=== PATIENT | female | born 1940 | race Caucasian/White ===

== ENCOUNTER 2020-03-31 14:31 | Emergency (ER) | payer MEDICARE, OTHER ==
[~2020-03-31] VITALS: Ht 177.8 cm; Wt 84.4 kg
--- OUTSIDE RECORDS SUMMARY | ~2020-03-31 | XMS | Clinical Summary ---
Demographics + + + | Address | [address] | | | [place] [address] | + + + | Home Phone | | + + + | Preferred Language | Unknown | + + + | Marital Status | | + + + | Cheondoism Affiliation | Unknown | + + + | Race | White | + + + | Ethnic Group | Not or | + + + Author + + + | Author | [facility] | | | and [place] | + + + | Organization | [facility] | | | and [place] | + + + | Address | Unknown | + + + | Phone | Unavailable | + + + Support + + +---------+ + | Name | Relationship | Address | Phone | + + +---------+ + | Royal Salas | ECON | Unknown | | + + +---------+ + Care Team Providers + +------+ + | Care [employer] Consultant Name | Role | Phone | + +------+ + | Rajeev Nash MD | PCP | | + +------+ + Allergies Not on File Medications Not on file Active Problems Not on file Family History + + +------+ + | Medical History | Relation | Name | Comments | + + +------+ + | Cancer | Father | | | + + +------+ + | Hypertension | Father | | | + + +------+ + | Hypertension | Mother | | | + + +------+ + | Stroke | Mother | | | + + +------+ + + +------+ + + | Relation | Name | Status | Comments | + +------+ + + | Father | | | lung cancer | | | | (Age | | | | | 82) | | + +------+ + + | Father | | | | + +------+ + + | Mother | | | Alzheimers,HTN,CVA | | | | (Age | | | | | 80) | | + +------+ + + | Mother | | | | + +------+ + + Social History + +-------+ +--------+------+ | Tobacco Use | Types | Packs/Day | Years | Date | | | | | Used | | + +-------+ +--------+------+ | Former Smoker | | 0.5 | | | + +-------+ +--------+------+ + + + | Sex Assigned at | Date Recorded | | | | + + + | Not on file | | + + + Last Filed Vital Signs Not on file Plan of Treatment + + +-------+ + | Health Maintenance | Due Date | Last | Comments | | | | Done | | + + +-------+ + | Vaccine: | | | | | Dtap/Tdap/Td (1 - | 1 | | | | Tdap) | | | | + + +-------+ + | Vaccine: Zoster (1 | | | | | of 2) | 2 | | | + + +-------+ + | Breast Cancer | | | | | Screening | 7 | | | + + +-------+ + | Vaccine: | | | | | Pneumococcal 65+ (1 | 7 | | | | of 1 - PPSV23) | | | | + + +-------+ + | Vaccine: Influenza | | | | | (#1) | 0 | | | + + +-------+ + Results Not on filefrom Last 3 Months"
--- OUTSIDE RECORDS SUMMARY | ~2020-03-31 | XMS | Encounter Summary ---
Demographics + + + | Address | [address] | | | [place] [address] | + + + | Home Phone | | + + + | Preferred Language | Unknown | + + + | Marital Status | | + + + | Christianity Affiliation | Unknown | + + + | Race | White | + + + | Ethnic Group | Not or | + + + Author + + + | Author | [facility] | | | and [place] | + + + | Organization | [facility] | | | and [...] Team Providers + +------+ + | Care Facilities Maintenance Supervisor Name | Role | Phone | + +------+ + | Rajeev Nash MD | PCP | | + +------+ + Encounter Details +--------+ + + + + | Date | Type | Department | Care Team | Description | +--------+ + + + + | 11/01/ | Orders Only | [facility] | Hermelindo Johnson | | | 2014 | | CARDIOLOGY YASMINE | MD [address] | | | | | [facility] [address] | [address] | | | | | [address] | [place] [address] | | | | | [place], [place] | [phone] | | | | | [address] | | | | | | [phone] | | | +--------+ + + + + Social History + +-------+ +--------+------+ | Tobacco Use | Types | Packs/Day | Years | Date | | | | | Used | | + +-------+ +--------+------+ | Never Assessed | | | | | + +-------+ +--------+------+ + + + | Sex Assigned at | Date Recorded | | | | + + + | Not on file | | + + + documented as of this encounter Plan of Treatment Not on filedocumented as of this encounter Procedures + +--------+ + + + | Procedure Name | Priori | Date/Time | Associated Diagnosis | Comments | | | ty | | | | + +--------+ + + + | STRESS ECG | Routin | 11/01/2014 | | Results for this | | | e | 10:08 AM | | procedure are in the | | | | PDT | | results section. | + +--------+ + + + documented in this encounter Results Stress ECG (11/01/2014 10:08 AM PDT) + + | Specimen | + + | | + + + + + | Impressions | Performed At | + + + | 1. Stress ECG negative for ischemia. 2. Occasional PACs and | | | PVCs observed observed. 3. Average exercise tolerance. 6-7 METs | | | achieved. 4. Aguirre Treadmill Score is 5.5 ( low risk). | | | | | + + + + + + | Narrative | Performed At | + + + | [facility] Treadmill Stress Test History: 74 | | | year old female being evaluated for paroxysmal atrial tachycardia | | | Rest Data: HR: 57 bpm BP: 149/88 Patient's predicted maximum HR: | | | 147 bpm Patient's predicted 85% maximum HR: 125 bpm Baseline ECG: | | | Normal sinus rhythm Stress Data: Exercise time: 05:34 METS: 7.20 | | | Peak HR: 130 bpm Peak BP: 203/89 RPP: [id number] Patient stopped due to: | | | shortness of breath Chest pain: none Stress ECG: no ischemic ECG | | | changes. Arrhythmias: Occasional PACs and PVCs observed | | | Procedure: Alden protocol. | | + + + + + | Procedure Note | + + | Steve Moura Conversion - 02/13/2019 [address] [facility] | | Treadmill Stress Test | | | | History: | | 74 year old female being evaluated for paroxysmal atrial tachycardia | | | | Rest Data: | | HR: 57 bpm BP: 149/88 | | Patient's predicted maximum HR: 147 bpm | | Patient's predicted 85% maximum HR: 125 bpm | | Baseline ECG: Normal sinus rhythm | | | | Stress Data: | | Exercise time: 05:34 METS: 7.20 | | Peak HR: 130 bpm Peak BP: 203/89 RPP: [id number] | | Patient stopped due to: shortness of breath | | Chest pain: none | | Stress ECG: no ischemic ECG changes. | | Arrhythmias: Occasional PACs and PVCs observed | | | | Procedure: | | Alden protocol. | | | | IMPRESSION: | | 1. Stress ECG negative for ischemia. | | 2. Occasional PACs and PVCs observed observed. | | 3. Average exercise tolerance. 6-7 METs achieved. | | 4. Aguirre Treadmill Score is 5.5 ( low risk). | | | | | + + documented in this encounter Visit Diagnoses Not on filedocumented in this encounter"
[~2020-03-31 14:31] MED LIST: ASPIRIN EC81 MG PO; CALCIUM 600 +1 EACH PO; KLOR-CON 1010 MEQ PO; LEVOTHYROXINE100 MCG PO; LIOTHYRONINE SO5 MCG PO; LOSARTAN-HCTZ1 EAC1 PO; METOPROLOL SUCC50 MG PO; NORCO 5-325 TA1 EACH PO; VITAMIN D-32000 UNI1 PO; VITAMIN D31000 UNI1 PO
[2020-03-31] MEDS ORDERED: MYRBETRIQ25 MG PO (15:40)
--- NOTE | 2020-04-01 08:59 | EKG ---
[facility] [address] [place] [address] Signed Marked sinus bradycardia Left ventricular hypertrophy with QRS widening Abnormal ECG No previous ECGs available Confirmed by CRISTINE BATEMAN MD ([id number]) on 04/01/2020 8:59:22 AM Electronically Signed By: CRISTINE BATEMAN MD 04/01/20 0859 PATIENT NAME: LIZZ JOY MEGAN Electrocardiogram DATE OF : 42 PHYSICIAN: CRISTINE BATEMAN MD REPORT #: [id number] REPORT IS CONFIDENTIAL AND NOT TO BE RELEASED WITHOUT AUTHORIZATION
== END 2020-03-31 18:24 | disposition home or self-care (01) ==
LOC: ED 14:31
DX: R00.1 Bradycardia, unspecified (principal); I10 Essential (primary) hypertension; Z88.8 Allergy status to other drugs, medicaments and biological substances; Z79.899 Other long term (current) drug therapy
CPT/HCPCS: 71045; 80053; 83735; 84443; 84484; 85025; 93005; 93010; 99284-25

== ENCOUNTER 2020-09-27 06:32 | Inpatient (IN) | payer MEDICARE, OTHER ==
[~2020-09-27] VITALS: Ht 177.8 cm; Wt 76.0 kg
--- NOTE | ~2020-09-27 | DS ---
[facility] [address] [place], [place] [address] Draft ADMISSION DATE: 09/27/2020 DISCHARGE DATE: 09/29/2020 REASON FOR ADMISSION: This 80-year-old white woman had the onset of severe mid abdominal pain approximately 1:00 a.m. on the day of presentation. She was seen in the emergency room where she was evaluated by Dr. Yousif and subsequently, Dr. Pipe Gaines. She was noted to have a white count of only 11.4 with central abdominal pain and tenderness. A CT scan was performed, which showed a large segment of small bowel, it was clearly inflamed, edematous and probably representing internal hernia. Surgical consultation was undertaken and evaluation showed her to have very minimal tenderness, but findings on the CT scan clearly to show a compromised mid small bowel. She is admitted to direct operation for remedy of the problem. PAST MEDICAL HISTORY: Does include prior history of abdominal hysterectomy. PERTINENT PHYSICAL EXAMINATION: GENERAL: This is a pleasant white woman, who looked to be in not too much distress. HEENT: Mucous membranes were moist. Trachea midline. CHEST: Clear. HEART: Regular. ABDOMEN: Showed mild central tenderness. No sign of distention. She had an obese abdomen otherwise. HOSPITAL COURSE: Within 30 minutes of surgical consultation, she was in the operating room and laparotomy performed, which showed a segment of bowel 85 cm in length, which was markedly ischemic related to an omental adhesion causing a closed-loop obstruction. The omental adhesion was relieved and bowel irrigated and managed with warm saline lavage ultimately returning to a state that would be considered viable. Pinching of the bowel throughout showed peristalsis and therefore, the bowel was not , though it looked quite ischemic at initial presentation. She did not require resection. Thereafter, she was maintained with a nasogastric tube overnight and it was subsequently removed and liquids began. She tolerated the liquids well and was advanced to regular diet, which she tolerated well. By the time of discharge, she is ambulating well, tolerating a regular diet, has no abdominal pain. Incision is healing well. She is planned for discharge to maintain a regular diet. PATIENT NAME: LIZZ JOY DISCHARGE SUMMARY DATE OF : 42 REPORT #: [id number] PHYSICIAN: REJI OCHOA MD PCP: IVON RUBI MD REPORT IS CONFIDENTIAL AND NOT TO BE RELEASED WITHOUT AUTHORIZATION [facility] [address] [place], [place] [address] Draft DISCHARGE MEDICATIONS: Will predominantly include: 1. Tylenol Extra Strength 1000 mg p.o. q.6 hours as needed for pain #30. 2. She will continue with potassium chloride 10 mEq p.o. daily. 3. Oxybutynin 15 mg p.o. daily. 4. Valacyclovir 1000 mg tablets 2 tablets p.o. b.i.d. as needed for cold sores. 5. Terbinafine 250 mg tablet p.o. daily. 6. Losartan/hydrochlorothiazide 50/12.5 one p.o. daily. 7. Calcium carbonate, vitamin D3 one tablet p.o. daily. 8. Synthroid 112 mcg p.o. daily. DISCHARGE DIAGNOSES: 1. 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 2. Hypothyroidism. 3. Hypertension. 4. . FOLLOWUP PLAN: She will return to see us in approximately 4 weeks. If she has problems in the meantime, she will let me know. She will maintain a regular diet. MD MADELEINE Alfonso/MODL /[id number] cc: MD Ivon Hunter MD Copies: PATIENT NAME: YUSEF JOYPancho GUZMAN DISCHARGE SUMMARY DATE OF : 42 REPORT #: [id number] PHYSICIAN: REJI OCHOA MD PCP: IVON RUBI MD REPORT IS CONFIDENTIAL AND NOT TO BE RELEASED WITHOUT AUTHORIZATION [address] [place], [place] [address] Draft ~ PATIENT NAME: LIZZ JOY DISCHARGE SUMMARY DATE OF : 42 REPORT #: [id number] PHYSICIAN: REJI OCHOA MD PCP: IVON RUBI MD REPORT IS CONFIDENTIAL AND NOT TO BE RELEASED WITHOUT AUTHORIZATION
--- NOTE | ~2020-09-27 | OR ---
[facility] [address] [place], [place] [address] Draft DATE OF OPERATION: 09/27/2020 SURGEON: Reji Ochoa MD PREOPERATIVE DIAGNOSIS: Small bowel obstruction of midgut, large segment possible internal hernia versus segmental volvulus. POSTOPERATIVE DIAGNOSIS: Small bowel obstruction secondary to omental adhesion with bowel ischemia (internal hernia), ischemic bowel 85 cm in length. PROCEDURE: Exploration of abdomen and lysis of obstructing omental adhesions, lavage of the abdomen, warm saline. ANESTHESIA: General endotracheal; Justo Phelan CRNA. INDICATIONS: This 80-year-old white woman had the onset of severe mid abdominal pain at approximately 1:00 a.m. today. She presented to the emergency room in the morning today where she was evaluated by Dr. Pipe Gaines, which included lab studies showing a white count of only 11.4 with central abdominal pain and tenderness and a CT scan performed showing a large segment of small bowel that was clearly inflamed, edematous with edematous mesentery consistent with internal hernia. The patient's past medical history does include abdominal hysterectomy through a Pfannenstiel incision. Clinical examination shows the patient to be not particularly severely tender at this time. Given the appearance of the CT scan and so forth, I have recommended emergency laparotomy with remedy of the problem; a scheduled case I have is put on hold for this emergency indeed. She understands the risks of bleeding, infection, need for possible bowel resection and so forth and wished to proceed. FINDINGS: There was limited midline incision. Laparotomy was performed, which showed a markedly ischemic bowel essentially an internal hernia related to omental adhesion entrapping proximal and distal ends of a loop of mid jejunum. The ischemic segment was 85 cm in length in total. Relief of the omental adhesion allowed for voodoo of blood flow to the segment. Observation with warm irrigation of the abdominal cavity including the PATIENT NAME: LIZZ JOY OPERATIVE REPORT DATE OF : 42 REPORT #: [id number] PHYSICIAN: REJI OCHOA MD PCP: IVON RUBI MD REPORT IS CONFIDENTIAL AND NOT TO BE RELEASED WITHOUT AUTHORIZATION [facility] [address] [place], [place] [address] Draft ischemic bowel showed the bowel to be viable and still able to peristalse and there is no segment of nika gangrene. The mesentery to the small bowel had no doubt, some areas of thrombosis, but it appeared the bowel was viable and resection was not necessary at this point. DESCRIPTION OF PROCEDURE: The patient was emergently brought to the operating room and given a general endotracheal anesthetic. Preoperative antibiotic Ancef was given. Sequential compression device stockings were applied. A Mariee catheter was placed. The abdomen was prepared with a chlorhexidine solution and draped sterilely. A nasogastric tube was placed by the substance abuse clinician. A midline incision was made extending above and below the umbilicus. The abdomen was entered without problem. Immediately noted were ischemic loops of bowel in the central abdomen. Palpation revealed a tight obstructive process at the mid jejunal mesentery. It was found to be related to a rather simple omental adhesion. Photographs were taken. The omental adhesion was divided and the bowel was immediately unwrapped and able to be delivered out of the abdomen and had a markedly ischemic appearance initially however with warm saline soaks and the bowel had a much improved appearance. Still it had inflammatory changes and mesentery was carefully examined. There were edematous changes and probably some venous thrombotic changes of small vessels in this area. With time and patience and a fair amount of warm saline irrigation to the segment and the intraabdominal cavity, the bowel appeared to improve. Tweaking of the bowel showed it to have good peristalsis. There was no segment gangrenous and it appeared that resection would not be necessary. Intraabdominal inspection elsewhere was undertaken showing some fibrinous protein of fluid in the pelvis. There were multiple diverticula of the colon. There was no sign of pelvic neoplasm or carcinomatosis or other finding. The small bowel was returned to its natural anatomic position and the abdomen irrigated with warm saline more fully and ultimately excess irrigation suctioned free. The omentum was placed over the abdominal contents. The midline fascia was reapproximated with running #1 PDS suture. Subcutaneous tissue was irrigated and the skin closed with running subcuticular of 3-0 Vicryl. Steri-Strips were applied as was a silver sponge dressing (Acticoat). The nasogastric tube had been manipulated into the stomach and affirmed to be in appropriate position prior to closure. She was ultimately extubated, anticipating transfer to the recovery room in good condition. Blood loss was less than 20 mL in aggregate. Sponge, needle, and instrument counts were reported as correct x3. Reji Ochoa MD PATIENT NAME: LIZZ JOY OPERATIVE REPORT DATE OF : 42 REPORT #: [id number] PHYSICIAN: REJI OCHOA MD PCP: IVON RUBI MD REPORT IS CONFIDENTIAL AND NOT TO BE RELEASED WITHOUT AUTHORIZATION [facility] [address] [place] [address] Draft /MODL /[id number] cc: MD Ivon Livingston MD Michele R Davies, FNP Cynthia Sue Holmes, MD Copies: MARIANA ACEVEDO CYNTHIA SUE MD ~ PATIENT NAME: LIZZ JOY OPERATIVE REPORT DATE OF : 42 REPORT #: [id number] PHYSICIAN: REJI OCHOA MD PCP: IVON RUBI MD REPORT IS CONFIDENTIAL AND NOT TO BE RELEASED WITHOUT AUTHORIZATION
--- NOTE | ~2020-09-27 | HP ---
[facility] [address] [place], [place] [address] Draft ADMISSION DATE: 09/27/2020 PROBLEM: Abdominal pain and possible internal hernia or midgut volvulus. HISTORY: This 80-year-old white woman was awakened with mid abdominal pain approximately 1:00 a.m. She remained at home, but then presented to the emergency room this morning and was evaluated by Dr. Pipe Gaines, found to have abdominal pain and tenderness and a CT scan was performed, which showed apparent small bowel obstruction of a long segment of distal jejunum and proximal ileum with extreme mesenteric edema and a small amount of ascites. Suggestion was made for internal hernia or possible limited volvulus. Immediate consultation was obtained and I evaluated the films and reviewed them the results with the radiologist as well as emergency room physician. She is not in the extreme distress at this time; however, the abdominal CT scan clearly shows what appears to be a midgut either volvulus or internal hernia or other problem that is in need of acute care. I see no evidence of embolic phenomenon of the superior mesenteric artery particularly however. PAST MEDICAL HISTORY: Notable for hysterectomy. She also has hypothyroidism. She does take antihypertensive medication and thyroid medication. ALLERGIES: She has allergy to JESSICA inhibitors. SOCIAL HISTORY: She lives in [place]. Her daughter, Hawa Acevedo is a family nurse practitioner working at the shelter and unavailable by phone at this time. REVIEW OF SYSTEMS: She has had no vomiting, but has had some nausea. Her pain has somewhat subsided, but remains significant in the mid abdomen. Denies any chest pain. She has had no shortness of breath. No hemoptysis. No dysuria. PHYSICAL EXAMINATION: GENERAL: A relatively tall white woman, who looks to be reasonably comfortable at this time. VITAL SIGNS: Systolic blood pressure currently 138, pulse 71. O2 saturation 100% on nasal cannula oxygen. Trachea is midline. PATIENT NAME: LIZZ JOY HISTORY AND PHYSICAL DATE OF : 42 REPORT #: [id number] PHYSICIAN: REJI OCHOA MD PCP: CESAR RUBI MD REPORT IS CONFIDENTIAL AND NOT TO BE RELEASED WITHOUT AUTHORIZATION [facility] [address] [place], [place] [address] Draft CHEST: Shows normal respiratory excursion without tachypnea. ABDOMEN: Obese, scaphoid, generally flat. There is mild central abdominal tenderness. She does not have clinical evidence of ascites. EXTREMITIES: Show no clubbing, cyanosis, or edema. LABORATORY DATA: On presentation, white count is 11.1, hematocrit 41, platelet count is normal. Electrolytes reasonably normal. Glucose slightly elevated at 160. ASSESSMENT: The midgut problem is worrisome on its appearance, she has less clinical evidence of severe compromise of bowel loops; however, I would recommend prompt exploration and remedy of this potential volvulus or internal hernia. Compromise of midgut is probability with delay of remedy. I discussed this with the patient in detail. I certainly would discuss this with her daughter if she were available, but is apparently not available by phone as she is not able to take her cellphone into the shelter. I will attempt to call the shelter discuss this with her as well. The risks of bleeding, infection, failure to cure the problem, need for bowel resection and so forth all reviewed with the patient. She understands and wishes to proceed. We will do this without delay. MD MADELEINE Alfonso/LAURI /[id number] cc: MD Leno Cartagena MD Michele R Davies, FNP Copies: MARIANA ACEVEDO PATIENT NAME: LIZZ JOY HISTORY AND PHYSICAL DATE OF : 42 REPORT #: [id number] PHYSICIAN: REJI OCHOA MD PCP: CESAR RUBI MD REPORT IS CONFIDENTIAL AND NOT TO BE RELEASED WITHOUT AUTHORIZATION [address] [address] Draft ~ PATIENT NAME: LIZZ JOY HISTORY AND PHYSICAL DATE OF : 42 REPORT #: [id number] PHYSICIAN: REJI OCHOA MD PCP: CESAR RUIB MD REPORT IS CONFIDENTIAL AND NOT TO BE RELEASED WITHOUT AUTHORIZATION
[~2020-09-27 06:32] MED LIST changes: +MYRBETRIQ25 MG PO
[2020-09-27] MEDS ORDERED: OXYBUTYNIN CHLO15 MG PO (07:17)
[2020-09-27] MEDS ORDERED: VALACYCLOVIR1000 MG PO (07:18)
[2020-09-27] MEDS ORDERED: TERBINAFINE HC250 MG PO (07:20)
[2020-09-27] MEDS ORDERED: LOSARTAN-HCTZ1 EACH PO (12:50)
[2020-09-27] MEDS ORDERED: CALCIUM 600 +1 EA13 PO (12:59)
[2020-09-27] MEDS ORDERED: LEVOTHYROXINE112 MCG PO (15:07)
[2020-09-29] MEDS ORDERED: TYLENOL EXTRA500 MG PO (11:32)
== END 2020-09-29 13:00 | disposition home or self-care (01) | DRG 336 ==
LOC: ED 06:32 → MS 09:48
PROVIDERS: ADMIT Surgery; ATTEND Surgery
PROC: 3E1M38Z Irrigation of Peritoneal Cavity using Irrigating Substance, Percutaneous Approach (ICD-10-PCS; 2020-09-27)
PROC: 0DNA0ZZ Release Jejunum, Open Approach (ICD-10-PCS; principal; 2020-09-27 11:15)
DX: K56.50 Intestinal adhesions [bands], unspecified as to partial versus complete obstruction (principal); K46.0 Unspecified abdominal hernia with obstruction, without gangrene; K55.9 Vascular disorder of intestine, unspecified; Z20.822 Contact with and (suspected) exposure to COVID-19; E03.9 Hypothyroidism, unspecified; I10 Essential (primary) hypertension; Z79.899 Other long term (current) drug therapy; Z88.8 Allergy status to other drugs, medicaments and biological substances
CPT/HCPCS: 00790; 36415; 74177; 80053; 81001; 83605; 83690; 85025; 94760; C9803; J0131; J0690; J1100; J1170; J1644; J1885; J2001; J2370; J2405; J2704; J3010; J3480; J7030; J7060; J7121; Q9967; U0003

== ENCOUNTER 2024-03-06 14:36 | Emergency (ER) | payer MEDICARE, OTHER ==
[~2024-03-06] VITALS: Ht 177.8 cm; Wt 92.6 kg
[~2024-03-06 14:36] MED LIST changes: +AMLODIPINE BESYL5 MG PO; +CALCIUM 600 +1 EA13 PO; +CLONIDINE HCL0.1 MG PO; +LEVOTHYROXINE112 MCG PO; +LOSARTAN-HCTZ1 EACH PO; +METOPROLOL SUCC25 MG PO; +NORVASC5 MG PO; +OXYBUTYNIN CHLO15 MG PO; +TERBINAFINE HC250 MG PO; +TYLENOL EXTRA500 MG PO; +VALACYCLOVIR1000 MG PO
[2024-03-06] MEDS ORDERED: ROSUVASTATIN CAL5 MG PO (14:53)
[2024-03-06] MEDS ORDERED: ondansetron HCL 4 MG/2 ML VIAL IV ONE (15:00)
[2024-03-06] MEDS ORDERED: fentaNYL citrate 100 MCG/2 ML VIAL IV ONE ×2 (15:00→16:45)
[2024-03-06] MEDS ORDERED: propofoL 200 MG/20 ML VIAL IV ONE (15:00)
[2024-03-06] MEDS ORDERED: CEFAZOLIN SODIUM 2 GM/20 ML SYR IV ONE (15:00)
[2024-03-06 15:04] LABS: BASOPHILS 0.5 % (0-2); EOSINOPHILS 1.6 % (0-6); HEMATOCRIT 40.5 % (35.0-50.0); HEMOGLOBIN 13.5 g/dL (12.0-18.0); LYMPHOCYTES 24.1 % (24-44); MCH 32.9 (27-36); MCHC 33.3 g/dl (30-36); MCV 98.6 fl (81-99); MONOCYTES 11.4 % (0-12); NEUTROPHILS 62.4 % (39-80); PLATELET COUNT 196 K/uL (140-440); RDW 13.7 (10.5-15.0)
[2024-03-06 15:13] LABS: ALBUMIN 3.6 g/dL (3.4-5.0); ALBUMIN/GLOBULIN RATIO 1.06 (1.1-2.4); ANION GAP 15.9 (7-21); BILIRUBIN, TOTAL 0.4 ng/dL (0.2-1.0); BUN/CREATININE RATIO 28.94 (6.0-28.6); CALCIUM 9.4 mg/dL (8.5-10.1); CREATININE, SERUM 0.76 mg/dL (0.55-1.02); POTASSIUM 3.9 mmol/L (3.5-5.1)
[2024-03-06] MEDS ORDERED: SODIUM CHLORIDE 0.9% 1,000 ML IV ONE (15:45)
[2024-03-06 15:56] LABS: ABO A; ANTIBODY SCREEN NEGATIVE; RH POSITIVE
[2024-03-06 17:40] VITALS: BP 145/62
== END 2024-03-06 17:51 | disposition short-term general hospital (02) ==
LOC: ED 14:36
PROVIDERS: Emergency Medicine
DX: S82.51XA Displaced fracture of medial malleolus of right tibia, initial encounter for closed fracture (principal); S82.831A Other fracture of upper and lower end of right fibula, initial encounter for closed fracture; W10.9XXA Fall (on) (from) unspecified stairs and steps, initial encounter; I10 Essential (primary) hypertension; E03.9 Hypothyroidism, unspecified; Z87.891 Personal history of nicotine dependence; Z88.8 Allergy status to other drugs, medicaments and biological substances; Z79.899 Other long term (current) drug therapy; Z79.890 Hormone replacement therapy
CPT/HCPCS: 36415; 73610; 80053; 82553; 83605; 85025; 86850; 86900; 86901; G0480; J0690; J2405; J2704; J3010; J7030

== ENCOUNTER 2024-12-17 20:29 | Emergency (ER) | payer MEDICARE, OTHER ==
[~2024-12-17] VITALS: Ht 177.8 cm; Wt 92.0 kg
[~2024-12-17 20:29] MED LIST changes: +ROSUVASTATIN CAL5 MG PO
[2024-12-17 21:06] LABS: BASOPHILS 0.5 % (0.1-1.2); HEMATOCRIT 39.3 % (34.1-44.9); LYMPHOCYTES 24.2 % (19.3-51.7); MCH 33.1 PG (25.6-32.2); MCHC 33.1 g/dL (32.2-35.5); MONOCYTES 13.1 % (4.7-12.5); NEUTROPHILS 58.8 % (34.0-71.1); PLATELET COUNT 207 K/uL (182-369); RBC 3.93 M/uL (3.93-5.22)
[2024-12-17 21:28] LABS: ALBUMIN 3.2 g/dL (3.4-5.0); ALBUMIN/GLOBULIN RATIO 0.91 (1.1-2.4); ANION GAP 12.9 (7-21); BILIRUBIN, TOTAL 0.4 mg/dL (0.2-1.0); BUN/CREATININE RATIO 13.91 (6.0-28.6); CALCIUM 8.8 mg/dL (8.5-10.1); CREATININE, SERUM 1.15 mg/dL (0.55-1.02); POTASSIUM 3.9 mmol/L (3.5-5.1); PROTEIN, TOTAL 6.7 g/dL (6.4-8.2)
[2024-12-17] MEDS ORDERED: ASPIRIN 81 MG CHEW PO ONE (22:30)
[2024-12-17] MEDS ORDERED: FUROSEMIDE 40 MG/4 ML VIAL IV ONE (22:30)
[2024-12-17 22:42] LABS: BILIRUBIN, URINE NEGATIVE (negative); BLOOD/HGB, URINE NEGATIVE (Negative); KETONE, URINE TRACE (Negative); LEUK ESTERASE, URINE NEGATIVE (negative); NITRITE, URINE NEGATIVE (negative); PH, URINE 6.5 (5-7)
[2024-12-18] MEDS ORDERED: LASIX40 MG PO (00:26)
[2024-12-18] MEDS ORDERED: POTASSIUM CHLO20 ME2 PO (00:26)
[2024-12-18] MEDS ORDERED: ADULT LOW DOSE81 MG PO (00:26)
[2024-12-18 01:17] VITALS: BP 126/89
--- NOTE | 2024-12-20 12:11 | EKG ---
[facility] [address] [facility] [place] [address] Signed Sinus rhythm with frequent premature ventricular complexes Low voltage QRS Cannot rule out Anteroseptal infarct , age undetermined Prolonged QT Abnormal ECG When compared with ECG of 22-JUN-2022 10:59, Significant changes have occurred Confirmed by Samra Loza DO ([id number]) on 12/20/2024 12:11:17 PM Electronically Signed By: SAMRA LOZA DO 12/20/24 1211 PATIENT NAME: LIZZ JOY Electrocardiogram DATE OF : 42 PHYSICIAN: SAMRA LOZA DO REPORT #: [id number] REPORT IS CONFIDENTIAL AND NOT TO BE RELEASED WITHOUT AUTHORIZATION
== END 2024-12-18 01:20 | disposition home or self-care (01) ==
LOC: ED 20:29
PROVIDERS: Internal Medicine
DX: I11.0 Hypertensive heart disease with heart failure (principal); I50.9 Heart failure, unspecified; Z79.899 Other long term (current) drug therapy; Z87.891 Personal history of nicotine dependence
CPT/HCPCS: 36415; 71045; 71260; 80053; 81003; 83880; 84484; 85025; 85379; 93005; 93010; 99285-25; A9270; J1938

== ENCOUNTER 2024-12-27 17:41 | Emergency (ER) | payer MEDICARE, OTHER ==
[~2024-12-27] VITALS: Ht 177.8 cm; Wt 92.5 kg
[~2024-12-27 17:41] MED LIST changes: +ADULT LOW DOSE81 MG PO; +LASIX40 MG PO; +POTASSIUM CHLO20 ME2 PO
--- OUTSIDE RECORDS SUMMARY | 2024-12-27 17:49 | XMS ---
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 Gricelda has no Care Guidelines for this patient. Ana Maria VISIT COUNT (12 MO.) [address] [facility] [address] [facility] TOTAL 3 NOTE: Visits indicate total known visits. ED/C VISIT TRACKING (12 MO.) 12/27/2024 17:42 [facility] [place] TYPE: Emergency COMPLAINT: - POST SURGERY POSS INFECTION 12/17/2024 20:29 [facility] [place] TYPE: Emergency COMPLAINT: - SOB DIAGNOSES: - Heart failure, unspecified - Hypertensive heart disease with heart failure - Other [place] [facility]current[facility] drug therapy - Personal history of nicotine dependence - Shortness of breath 03/06/2024 14:37 [facility] [place] TYPE: Emergency COMPLAINT: - FALL DIAGNOSES: - Allergy status to other drugs, medicaments and biological substances - Displaced fracture of medial malleolus of right tibia, initial encounter for closed fracture - Essential (primary) hypertension - Fall (on) (from) unspecified stairs and steps, initial encounter - Hormone replacement therapy - Hypothyroidism, unspecified - Other fracture of upper and lower end of right fibula, initial encounter for closed fracture - 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
[2024-12-27] MEDS ORDERED: AMLODIPINE BESYL5 MG PO (18:27)
[2024-12-27] MEDS ORDERED: HYDROCHLOROTH12.5 MG PO (18:28)
[2024-12-27 18:50] LABS: BASOPHILS 0.9 % (0.1-1.2); EOSINOPHILS 2.7 % (0.7-5.8); LYMPHOCYTES 28.7 % (19.3-51.7); MCH 32.3 PG (25.6-32.2); MCHC 32.8 g/dL (32.2-35.5); MCV 98.3 fL (79.4-94.8); MONOCYTES 12.7 % (4.7-12.5); NEUTROPHILS 54.8 % (34.0-71.1); RBC 4.09 M/uL (3.93-5.22)
[2024-12-27 19:04] LABS: ALT (SGPT) 18.0 U/L (14-59); AST (SGOT) 19.0 U/L (15-37); GLOMERULAR FILTRATION RATE,EST 73.0 mL/min (>60); PROTEIN, TOTAL 6.7 g/dL (6.4-8.2); UREA NITROGEN 18.0 mg/dL (7-18)
[2024-12-27 19:20] VITALS: BP 148/75
[2024-12-27] MEDS ORDERED: CEPHALEXIN500 M1 PO (19:25)
[2024-12-27] MEDS ORDERED: CEPHALEXIN MONOHYDRATE 500 MG HOME.PACK PO ONE (19:30)
== END 2024-12-27 19:35 | disposition home or self-care (01) ==
LOC: ED 17:41
PROVIDERS: Emergency Medicine
DX: T81.49XA Infection following a procedure, other surgical site, initial encounter (principal); L03.115 Cellulitis of right lower limb; I10 Essential (primary) hypertension; Z87.891 Personal history of nicotine dependence; Z90.711 Acquired absence of uterus with remaining cervical stump
CPT/HCPCS: 36415; 80053; 85025; 99283; A9270

== ENCOUNTER 2025-05-16 13:26 | Emergency (ER) | payer OTHER, MEDICARE ==
[~2025-05-16] VITALS: Ht 177.8 cm; Wt 88.3 kg
[~2025-05-16 13:26] MED LIST changes: +CEPHALEXIN500 M1 PO; +HYDROCHLOROTH12.5 MG PO
[2025-05-16] MEDS ORDERED: ENTRESTO 97 MG1 EACH PO (13:49)
[2025-05-16] MEDS ORDERED: ALDACTONE25 MG PO (13:51)
[2025-05-16] MEDS ORDERED: TRAZODONE HCL50 MG PO (13:51)
[2025-05-16] MEDS ORDERED: JARDIANCE10 MG PO (13:51)
[2025-05-16] MEDS ORDERED: FOSAMAX70 MG PO (13:52)
[2025-05-16] MEDS ORDERED: VITAMIN D250 MCG PO (13:53)
[2025-05-16 14:35] VITALS: BP 105/61
== END 2025-05-16 14:35 | disposition home or self-care (01) ==
LOC: ED 13:26
DX: S60.222A Contusion of left hand, initial encounter (principal); S00.81XA Abrasion of other part of head, initial encounter; W18.30XA Fall on same level, unspecified, initial encounter; I11.0 Hypertensive heart disease with heart failure; I50.9 Heart failure, unspecified; Z87.891 Personal history of nicotine dependence; Z90.710 Acquired absence of both cervix and uterus
CPT/HCPCS: 73130; 99283